=== PATIENT | male | born 1980 | race Hispanic/Latino ===

== ENCOUNTER 2023-07-21 20:41 | Emergency (ER) | payer SELFPAY ==
[2023-07-21] MEDS ORDERED: methylPREDNISolone Sod Succ/PF 125 MG/2 ML VIAL ONE (21:39)
[2023-07-21] MEDS ORDERED: diphenhydrAMINE 25 MG CAP ONE (21:40)
[2023-07-21] MEDS ORDERED: Famotidine 20 MG TAB ONE (21:45)
== END 2023-07-21 22:09 | disposition home or self-care (01) ==
LOC: CSHERS 20:41
DX: L50.0 Allergic urticaria (principal); T49.2X5A Adverse effect of local astringents and local detergents, initial encounter; M10.9 Gout, unspecified; F17.220 Nicotine dependence, chewing tobacco, uncomplicated; Z55.6 Problems related to health literacy
CPT/HCPCS: 96372; 99283; J2930

== ENCOUNTER 2024-10-23 08:28 | Emergency (ER) | payer SELFPAY ==
[2024-10-23] MEDS ORDERED: predniSONE 20 MG TAB ONE (09:16)
[2024-10-23] MEDS ORDERED: Ketorolac Tromethamine 30 MG (1 mL) VIAL ONE (09:16)
[2024-10-23] MEDS ORDERED: Colchicine 0.6 MG TAB PO SCH (09:45)
== END 2024-10-23 09:02 | disposition home or self-care (01) ==
LOC: CSHERS 08:28
DX: M10.9 Gout, unspecified (principal); F17.220 Nicotine dependence, chewing tobacco, uncomplicated
CPT/HCPCS: 96372; 99283; J1885; J7512